=== PATIENT | female | born 1975 | race Hispanic/Latino ===

== ENCOUNTER 2018-04-26 21:41 | Emergency (ER) | payer MEDICAID, OTHER ==
[2018-04-26] MEDS ORDERED: METOCLOPRAMIDE 10 MG/2 ML VIAL ONE (21:53)
[2018-04-26] MEDS ORDERED: SODIUM CHLORIDE 0.9% 1000ML 2,000 ML IV ONE (21:54)
[2018-04-26] MEDS ORDERED: KETOROLAC TROMETHAMINE 30MG/ML ONE (21:54)
[2018-04-26 22:23] LABS: BASOPHILS % (AUTO) 0.8 % (0.0-5.0); EOSINOPHILS % (AUTO) 4.2 % (0.0-8.0); HEMATOCRIT 34.6 % (36-48); LYMPHOCYTES % (AUTO) 21.7 % (21.0-51.0); MEAN CORPUSCULAR VOLUME 81.8 fL (79-99); MONOCYTES % (AUTO) 7.3 % (3.0-13.0); NUCLEATED RED BLOOD CELLS 0.1 % (0.0-0.19); PLATELET COUNT (AUTO) 263 K/uL (130-400); RED BLOOD CELL COUNT(AUTO) 4.23 MIL/uL (4.00-5.50); RED CELL DISTRIBUTION WIDTH 13.2 % (11.0-15.5); WHITE BLOOD COUNT (AUTO) 7.5 K/uL (4.8-10.8)
[2018-04-26 22:31] LABS: CREATININE 0.8 mg/dL (0.5-1.5); POTASSIUM 3.9 mmol/L (3.5-5.1)
[2018-04-26 22:39] LABS: APPEARANCE,URINE Cloudy (CLEAR); BILIRUBIN,URINE Negative (NEGATIVE); COLOR,URINE Yellow (YELLOW); GLUCOSE, URINE (UA) >=1000 mg/dL (NEGATIVE); KETONES,URINE Negative (NEGATIVE); LEUKOCYTE ESTERASE ,URINE Moderate (NEGATIVE); NITRATE,URINE Negative (NEGATIVE); OCCULT BLOOD,URINE Negative (NEGATIVE); PH,URINE 6.5 (5.0-8.0); PROTEIN,URINE Negative (NEGATIVE)
[2018-04-26 22:44] LABS: HCG,QUAL RESULT NEGATIVE (NEGATIVE)
[2018-04-26 23:06] LABS: BACTERIA,URINE Moderate /HPF (None Seen); RBC,URINE 0-1 /HPF (0-1); YEAST,URINE BUDDING Few /HPF (None Seen)
[2018-04-26] MEDS ORDERED: INSULIN HUMULIN R 100 UNIT/ML 3ML ONE (23:59)
== END 2018-04-27 00:08 | disposition home or self-care (01) ==
LOC: EDH 21:41
DX: E11.65 Type 2 diabetes mellitus with hyperglycemia (principal)
CPT/HCPCS: 36415; 80048; 81001; 81025; 82948; 85025; 96361; 96372; 96374; 96375; 99283; J1815; J1885; J2765; J7030

== ENCOUNTER 2022-05-20 17:32 | Inpatient (IN) | payer BC ==
[~2022-05-20] VITALS: Ht 154.9 cm; Wt 90.3 kg
[~2022-05-20 17:32] MED LIST: CEPH500B PO; ONDA4TAB10 PO
[2022-05-20 18:44] LABS: BASOPHILS % (AUTO) 0.3 % (0.0-5.0); EOSINOPHILS % (AUTO) 0.5 % (0.0-8.0); HEMATOCRIT 34.6 % (36-48); LYMPHOCYTES % (AUTO) 6.4 % (21.0-51.0); MEAN CORPUSCULAR HEMOGLOBIN 29.3 pg (27.0-33.0); MEAN CORPUSCULAR HGB CONC 33.8 g/dL (32.0-36.0); MEAN CORPUSCULAR VOLUME 86.5 fL (79-99); MONOCYTES % (AUTO) 6.3 % (3.0-13.0); NEUTROPHILS % (AUTO) 85.9 % (40.0-77.0); PLATELET COUNT (AUTO) 237 K/uL (130-400); RED CELL DISTRIBUTION WIDTH 11.7 % (11.0-15.5)
[2022-05-20 18:47] LABS: APPEARANCE,URINE CLEAR (CLEAR); BILIRUBIN,URINE NEGATIVE (NEGATIVE); COLOR,URINE LIGHT-YELLOW (YELLOW); GLUCOSE, URINE (UA) NEGATIVE (NEGATIVE); KETONES,URINE NEGATIVE (NEGATIVE); LEUKOCYTE ESTERASE ,URINE 500 Leu/uL (NEGATIVE); NITRATE,URINE NEGATIVE (NEGATIVE); OCCULT BLOOD,URINE NEGATIVE (NEGATIVE); PH,URINE 7.5 (5.0-8.0); PROTEIN,URINE NEGATIVE (NEGATIVE); UROBILINOGEN,URINE 0.2 mg/dL (0.2-1.0)
[2022-05-20 18:51] LABS: CARBON DIOXIDE 28 mmol/L (21-32); CHLORIDE 100 mmol/L (101-111); CREATININE 0.8 mg/dL (0.5-1.5); GLOMERULAR FILTR. RATE CALC 82 mL/min (>60); GLUCOSE,RANDOM 182 mg/dL (70-105); POTASSIUM 4.2 mmol/L (3.5-5.1); SODIUM SERUM 137 mmol/L (136-145); UREA NITROGEN, BLOOD 10 mg/dL (7-18)
[2022-05-20 18:56] LABS: ALANINE AMINOTRANSFERASE 26 U/L (12-78); ALBUMIN 3.8 g/dL (3.5-5.0); ASPARTATE AMINOTRANSFERASE 16 U/L (10-37); TOTAL PROTEIN, SERUM 7.8 g/dL (6.0-8.3)
[2022-05-20 19:02] LABS: LIPASE < 50 U/L (114-286)
[2022-05-20 19:18] LABS: BACTERIA,URINE MOD /HPF (None Seen); MUCUS,URINE RARE LPF (None Seen); SQUAMOUS EPITHELIAL CELL,UR RARE /HPF (0-2); WBC,URINE 51-100 /HPF (0-1)
[2022-05-20] MEDS ORDERED: ACETAMINOPHEN 500 MG TABLET ONE (21:06)
[2022-05-20] MEDS ORDERED: IBUPROFEN 400 MG TABLET ONE (21:06)
[2022-05-20] MEDS ORDERED: CEFTRIAXONE 1G VIAL ONE (21:06)
[2022-05-20] MEDS ORDERED: IBUPROFEN 200 MG TAB ONE (21:07)
[2022-05-20] MEDS ORDERED: 0.9% NACL 500ML IV.SOLN 500 ML IV ONE (21:07)
[2022-05-20] MEDS ORDERED: ONDANSETRON ODT 4MG TAB ONE (21:07)
[2022-05-20] MEDS ORDERED: KETOROLAC 30MG VIAL (30MG/ML) ONE (23:46)
[2022-05-20] MEDS ORDERED: ONDA4TAB10 PO (23:49)
[2022-05-20] MEDS ORDERED: CEPH500B PO (23:49)
[2022-05-21] VITALS (10 sets, daily range): BP systolic 131–149; BP diastolic 53–72
[2022-05-21] MEDS ORDERED: DEXTROSE 50%-WATER 50 ML DISP.SYRIN IV PRN (01:00)
[2022-05-21] MEDS ORDERED: GLUCAGON 1MG KIT 1 MG ML IM PRN (01:00)
[2022-05-21] MEDS ORDERED: 0.9%NACL 1000ML 1,000 ML IV SCH (01:30)
[2022-05-21] MEDS ORDERED: ACETAMINOPHEN 325 MG TAB PO PRN ×2 (01:30)
[2022-05-21] MEDS ORDERED: NITROGLYCERIN 0.4 MG SL TAB SL PRN (01:30)
[2022-05-21] MEDS ORDERED: ONDANSETRON 4MG INJ IV PRN (01:30)
[2022-05-21 02:40] LABS: INR 1.06 (0.85-1.15); PROTHROMBIN TIME 11.5 SEC (9.6-11.6)
[2022-05-21 02:42] LABS: PARTIAL THROMBOPLASTIN TIME 30.2 SEC (26.3-35.5)
[2022-05-21] MEDS: 0.9%NACL 1000ML 1,000 ML IV SCH ×3 (03:30→23:00)
[2022-05-21] MEDS: METRONIDAZOLE 500MG/100ML BAG 100 ML IVPB SCH ×3 (03:30→21:06)
[2022-05-21 06:58] LABS: BASOPHILS % (AUTO) 0.3 % (0.0-5.0); EOSINOPHILS % (AUTO) 0.5 % (0.0-8.0); HEMATOCRIT 33.3 % (36-48); LYMPHOCYTES % (AUTO) 13.1 % (21.0-51.0); MEAN CORPUSCULAR HEMOGLOBIN 29.3 pg (27.0-33.0); MEAN CORPUSCULAR HGB CONC 33.9 g/dL (32.0-36.0); MEAN CORPUSCULAR VOLUME 86.3 fL (79-99); MONOCYTES % (AUTO) 7.2 % (3.0-13.0); NEUTROPHILS % (AUTO) 78.4 % (40.0-77.0); PLATELET COUNT (AUTO) 225 K/uL (130-400); RED BLOOD CELL COUNT(AUTO) 3.86 MIL/uL (4.00-5.50); RED CELL DISTRIBUTION WIDTH 11.9 % (11.0-15.5); WHITE BLOOD COUNT (AUTO) 16.8 K/uL (4.8-10.8)
[2022-05-21 07:07] LABS: HEMOGLOBIN A1C 8.5 % (4.0-6.0)
[2022-05-21 07:08] LABS: ALBUMIN 3.5 g/dL (3.5-5.0); MAGNESIUM 1.5 mg/dL (1.80-2.40); POTASSIUM 3.9 mmol/L (3.5-5.1); TOTAL PROTEIN, SERUM 7.2 g/dL (6.0-8.3)
[2022-05-21] MEDS: INSULIN HUMULIN R 100 UNIT/ML 3ML SQ SCH ×4 (07:30→21:00)
[2022-05-21] MEDS: FAMOTIDINE 20MG VIAL IV SCH ×2 (08:55→19:30)
[2022-05-21] MEDS: ENOXAPARIN SODIUM 40 MG/0.4 ML SYRINGE SQ SCH (08:56)
[2022-05-21] MEDS ORDERED: MORPHINE 2 MG SYG ONE (19:25)
[2022-05-21] MEDS ORDERED: CEFTRIAXONE 1G VIAL ONE (19:25)
[2022-05-21] MEDS ORDERED: BUPIVACAINE/PF 0.5% 10ML VIAL ONE (19:39)
[2022-05-21] MEDS ORDERED: CEFTRIAXONE 1G VIAL IVP ONE (21:00)
[2022-05-21] MEDS ORDERED: MIDAZOLAM HCL 1 MG/ML 2ML VIAL ONE (21:40)
[2022-05-21] MEDS ORDERED: PROPOFOL 10 MG/ML 20ML VIAL IV ONE (21:40)
[2022-05-21] MEDS ORDERED: SUCCINYLCHOLINE CHLORIDE 20 MG/ML 10 ML VIAL ONE (21:40)
[2022-05-21] MEDS ORDERED: ROCURONIUM 10MG/1ML SYR 10 MG/ML ML ONE (21:41)
[2022-05-21] MEDS ORDERED: FENTANYL CITRATE PF 50 MCG/1 ML 2ML VIAL ONE (21:41)
[2022-05-21] MEDS ORDERED: PHENYLEPHRINE HCL 10 MG/ML 1ML VIAL IV ONE (22:22)
[2022-05-21] MEDS ORDERED: ALBUMIN (HUMAN) 5% 250 ML IV ONE (22:33)
[2022-05-21] MEDS ORDERED: EPHEDRINE SULFATE 50 MG/ML AMPULE ONE (23:10)
[2022-05-21] MEDS ORDERED: GLYCOPYRROLATE 1 MG/5 ML SYRINGE ONE (23:16)
[2022-05-21] MEDS ORDERED: NEOSTIGMINE 5MG/5ML SYR IV ONE (23:17)
[2022-05-21] MEDS ORDERED: MEPERIDINE-PF 25 MG/ML SYG ONE (23:35)
[2022-05-21] MEDS ORDERED: KETOROLAC 30MG VIAL (30MG/ML) ONE (23:45)
[2022-05-22] VITALS (18 sets, daily range): BP systolic 113–149; BP diastolic 50–76
[2022-05-22] MEDS: MORPHINE 2 MG SYG IVP PRN ×3 (03:14→18:08)
[2022-05-22 04:59] LABS: HEMATOCRIT 31.4 % (36-48); MEAN CORPUSCULAR HGB CONC 31.5 g/dL (32.0-36.0); MEAN CORPUSCULAR VOLUME 92.1 fL (79-99); RED BLOOD CELL COUNT(AUTO) 3.41 MIL/uL (4.00-5.50); RED CELL DISTRIBUTION WIDTH 11.8 % (11.0-15.5); WHITE BLOOD COUNT (AUTO) 17.5 K/uL (4.8-10.8)
[2022-05-22 05:15] LABS: CREATININE 0.7 mg/dL (0.5-1.5); POTASSIUM 3.9 mmol/L (3.5-5.1); TOTAL PROTEIN, SERUM 6.5 g/dL (6.0-8.3)
[2022-05-22] MEDS: METRONIDAZOLE 500MG/100ML BAG 100 ML IVPB SCH ×3 (05:17→22:47)
[2022-05-22] MEDS: INSULIN HUMULIN R 100 UNIT/ML 3ML SQ SCH ×4 (06:06→20:31)
[2022-05-22] MEDS: FAMOTIDINE 20MG VIAL IV SCH ×2 (10:30→20:55)
[2022-05-22] MEDS: ENOXAPARIN SODIUM 40 MG/0.4 ML SYRINGE SQ SCH (10:31)
[2022-05-22] MEDS: 0.9%NACL 1000ML 1,000 ML IV SCH ×2 (10:33→20:58)
[2022-05-22] MEDS ORDERED: 0.9%NACL 50ML IV SCH (16:00)
[2022-05-22] MEDS: ZOSYN 3.375GM +NS 50ML IVPB SCH ×2 (16:26→23:54)
[2022-05-23] MEDS: MORPHINE 2 MG SYG IVP PRN (00:07)
[2022-05-23 03:34] VITALS: BP 117/65
[2022-05-23 05:05] LABS: HEMATOCRIT 28.9 % (36-48); MEAN CORPUSCULAR HEMOGLOBIN 29.5 pg (27.0-33.0); MEAN CORPUSCULAR HGB CONC 33.2 g/dL (32.0-36.0); MEAN CORPUSCULAR VOLUME 88.9 fL (79-99); RED BLOOD CELL COUNT(AUTO) 3.25 MIL/uL (4.00-5.50); RED CELL DISTRIBUTION WIDTH 11.7 % (11.0-15.5); WHITE BLOOD COUNT (AUTO) 10.9 K/uL (4.8-10.8)
[2022-05-23] MEDS: METRONIDAZOLE 500MG/100ML BAG 100 ML IVPB SCH (05:15)
[2022-05-23 05:28] LABS: ALBUMIN 2.9 g/dL (3.5-5.0); CREATININE 0.7 mg/dL (0.5-1.5); POTASSIUM 3.9 mmol/L (3.5-5.1); TOTAL PROTEIN, SERUM 6.3 g/dL (6.0-8.3)
[2022-05-23] MEDS: INSULIN HUMULIN R 100 UNIT/ML 3ML SQ SCH ×3 (06:17→15:46)
[2022-05-23 08:00] VITALS: BP 143/76
[2022-05-23] MEDS: FAMOTIDINE 20MG VIAL IV SCH (08:41)
[2022-05-23] MEDS: ZOSYN 3.375GM +NS 50ML IVPB SCH (08:41)
[2022-05-23] MEDS: ENOXAPARIN SODIUM 40 MG/0.4 ML SYRINGE SQ SCH (08:42)
[2022-05-23] MEDS: 0.9%NACL 1000ML 1,000 ML IV SCH (08:44)
[2022-05-23 12:00] VITALS: BP 138/95
[2022-05-23] MEDS ORDERED: ONDA4TAB10 PO (12:49)
[2022-05-23] MEDS ORDERED: AMOX1TAB16 PO ×2 (12:49→16:47)
[2022-05-23 16:00] VITALS: BP 144/77
== END 2022-05-23 16:40 | disposition home or self-care (01) | DRG 853 ==
LOC: EDH 17:32 → EDHIP 05-21 01:04 → 4BH 05-21 14:45
PROVIDERS: ADMIT Internal Medicine; ATTEND Internal Medicine
PROC: 0DTJ4ZZ Resection of Appendix, Percutaneous Endoscopic Approach (ICD-10-PCS; principal; 2022-05-21 22:05)
DX: A41.9 Sepsis, unspecified organism (principal); K35.32 Acute appendicitis with perforation, localized peritonitis, and gangrene, without abscess; E11.52 Type 2 diabetes mellitus with diabetic peripheral angiopathy with gangrene; Z20.822 Contact with and (suspected) exposure to COVID-19; K66.0 Peritoneal adhesions (postprocedural) (postinfection); Z83.3 Family history of diabetes mellitus; Z79.899 Other long term (current) drug therapy
CPT/HCPCS: 36415; 71045; 74176; 80053; 81001; 82948; 83036; 83605; 83690; 83735; 84703; 85025; 85027; 85610; 85730; 87040; 87088; 87635; 87804; A4344; C9803; G0378; J0330; J0696; J1650; J1815; J1885; J2175; J2250; J2370; J2543; J2704; J2710; J3010; J3490; J7030; J7040; P9045

== ENCOUNTER 2022-06-22 02:27 | Emergency (ER) | payer BC ==
[~2022-06-22] VITALS: Ht 162.6 cm; Wt 87.1 kg
[~2022-06-22 02:27] MED LIST changes: +AMOX1TAB16 PO; -CEPH500B PO
[2022-06-22 03:13] LABS: APPEARANCE,URINE CLEAR (CLEAR); BASOPHILS % (AUTO) 0.4 % (0.0-5.0); BILIRUBIN,URINE NEGATIVE (NEGATIVE); COLOR,URINE COLORLESS (YELLOW); EOSINOPHILS % (AUTO) 1.8 % (0.0-8.0); GLUCOSE, URINE (UA) TRACE mg/dL (NEGATIVE); HCG,QUALITATIVE URINE NEGATIVE (NEGATIVE); HEMATOCRIT 33.3 % (36-48); KETONES,URINE NEGATIVE (NEGATIVE); LEUKOCYTE ESTERASE ,URINE NEGATIVE Leu/uL (NEGATIVE); LYMPHOCYTES % (AUTO) 30.1 % (21.0-51.0); MEAN CORPUSCULAR HEMOGLOBIN 28.7 pg (27.0-33.0); MEAN CORPUSCULAR HGB CONC 33.9 g/dL (32.0-36.0); MEAN CORPUSCULAR VOLUME 84.5 fL (79-99); MONOCYTES % (AUTO) 6.9 % (3.0-13.0); NEUTROPHILS % (AUTO) 60.5 % (40.0-77.0); NITRATE,URINE NEGATIVE (NEGATIVE); OCCULT BLOOD,URINE NEGATIVE (NEGATIVE); PLATELET COUNT (AUTO) 220 K/uL (130-400); PROTEIN,URINE NEGATIVE (NEGATIVE); RED BLOOD CELL COUNT(AUTO) 3.94 MIL/uL (4.00-5.50); RED CELL DISTRIBUTION WIDTH 12.3 % (11.0-15.5); UROBILINOGEN,URINE 0.2 mg/dL (0.2-1.0); WHITE BLOOD COUNT (AUTO) 7.7 K/uL (4.8-10.8)
[2022-06-22 03:18] LABS: CARBON DIOXIDE 27 mmol/L (21-32); CHLORIDE 102 mmol/L (101-111); CREATININE 0.7 mg/dL (0.5-1.5); GLOMERULAR FILTR. RATE CALC 107 mL/min (>90); GLUCOSE,RANDOM 266 mg/dL (70-105); POTASSIUM 3.8 mmol/L (3.5-5.1); SODIUM SERUM 135 mmol/L (136-145); UREA NITROGEN, BLOOD 8 mg/dL (7-18)
[2022-06-22 03:22] LABS: ALANINE AMINOTRANSFERASE 19 U/L (12-78); ALBUMIN 3.5 g/dL (3.5-5.0); ASPARTATE AMINOTRANSFERASE 8 U/L (10-37); TOTAL PROTEIN, SERUM 7.2 g/dL (6.0-8.3)
[2022-06-22 03:24] LABS: LIPASE < 50 U/L (114-286)
[2022-06-22] MEDS ORDERED: KETOROLAC 15MG/ML VIAL (15MG/ML) IV ONE (03:30)
[2022-06-22] MEDS ORDERED: MORPHINE 4 MG SYG ONE (03:52)
[2022-06-22] MEDS ORDERED: MORPHINE 4 MG SYG IVP ONE (04:00)
[2022-06-22] MEDS ORDERED: DICY20TA2 PO (07:04)
[2022-06-22 07:25] VITALS: BP 122/64
== END 2022-06-22 07:46 | disposition home or self-care (01) ==
LOC: EDH 02:27
DX: R10.32 Left lower quadrant pain (principal); R11.0 Nausea; E11.9 Type 2 diabetes mellitus without complications; N39.0 Urinary tract infection, site not specified; Z90.49 Acquired absence of other specified parts of digestive tract
CPT/HCPCS: 99284; 74176; 96374; 96375; 80053; 83690; 85025; 81003; 81025; 36415; J2270; J1885